=== PATIENT | female | born 1995 | race Two or more races ===

== ENCOUNTER 2020-08-18 07:00 | Inpatient (IN) | payer OTHER ==
[2020-08-18] MEDS: ELECTROLYTE-148 SOLN 1,000 ML IV SCH (07:30)
[2020-08-18] MEDS ORDERED: BUTORPHANOL TARTRATE 1 MG/ML VIAL IVPB ONE (07:51)
[2020-08-18] MEDS ORDERED: PROMETHAZINE HCL 25 MG/1 ML VIAL ONE ×2 (07:54→10:31)
[2020-08-18 08:23] LABS: INR 0.99 (0.83-1.09)
[2020-08-18 08:25] LABS: ACTIVATED PTT 25.5 SECONDS (25.2-36.5)
[2020-08-18 08:27] LABS: BLOOD UREA NITROGEN 9.3 mg/dL (7-18); CALCIUM 9.6 mg/dL (8.5-10.1)
[2020-08-18 08:31] LABS: BASO % 0.1 % (0-2.0); CREATININE 0.5 mg/dL (0.55-1.3); HEMATOCRIT 35.8 % (32.4-45.2); HEMOGLOBIN 12.3 GM/dL (10.7-15.3); LYMPH % 5.5 % (8-40); MCH 32.5 pg (25.7-33.7); MCHC 34.3 g/dl (32.0-36.0); MEAN CELL VOLUME 94.9 fl (80-96); MEAN PLT VOLUME 10.5 fl (7.5-11.1); MONO % 1.1 % (3.8-10.2); NEUT % 93.3 % (42.8-82.8); PLATELET COUNT 138 K/MM3 (134-434); RBC 3.78 M/mm3 (3.60-5.2); RDW 13.3 % (11.6-15.6); WHITE BLOOD COUNT 15.2 K/mm3 (4.0-10.0)
[2020-08-18 08:34] VITALS: BMI 23.0
[2020-08-18] MEDS ORDERED: LIDOCAINE HCL 1% PRESERVATIVE FREE - 30ML VIAL ONE (09:55)
[2020-08-18] MEDS ORDERED: OXYTOCIN 30 UNITS in 0.9% NS 30 UNIT/500 ML INFUS.BAG IVPB ONE ×2 (09:55→10:31)
[2020-08-18] MEDS ORDERED: OXYTOCIN 20 UNITS in 0.9% NS 20 UNIT/1,000 ML INFUS.BAG IV ONE ×2 (09:55→15:27)
[2020-08-18] MEDS ORDERED: BUTORPHANOL TARTRATE 1 MG/ML VIAL IVPUSH ONE (10:31)
[2020-08-18] MEDS ORDERED: BUTORPHANOL TARTRATE 1 MG/ML VIAL ONE (10:31)
[2020-08-18] MEDS ORDERED: PROMETHAZINE HCL 25 MG/1 ML VIAL IVPUSH ONE (10:31)
[2020-08-18] MEDS ORDERED: OXYTOCIN 30 UNITS in 0.9% NS 30 UNIT/500 ML INFUS.BAG IVPB SCH (10:45)
[2020-08-18] MEDS: OXYTOCIN 20 UNITS in 0.9% NS 20 UNIT/1,000 ML INFUS.BAG IV SCH ×2 (15:40→20:45)
[2020-08-18 16:10] LABS: BASO % 0.2 % (0-2.0); EOS % 0.1 % (0-4.5); HEMATOCRIT 32.6 % (32.4-45.2); HEMOGLOBIN 10.8 GM/dL (10.7-15.3); LYMPH % 5.9 % (8-40); MCH 32.2 pg (25.7-33.7); MCHC 33.3 g/dl (32.0-36.0); MEAN CELL VOLUME 96.7 fl (80-96); MEAN PLT VOLUME 11.4 fl (7.5-11.1); MONO % 5.3 % (3.8-10.2); NEUT % 88.5 % (42.8-82.8); PLATELET COUNT 170 K/MM3 (134-434); RBC 3.37 M/mm3 (3.60-5.2); RDW 13.4 % (11.6-15.6); WHITE BLOOD COUNT 20.8 K/mm3 (4.0-10.0)
[2020-08-18] MEDS ORDERED: BENZOCAINE 20% 57 GM BOTTLE TP PRN (16:19)
[2020-08-18] MEDS ORDERED: BENZOCAINE 28 GM HEMORRHOIDAL OINTMENT TP PRN (16:19)
[2020-08-18] MEDS ORDERED: WITCH HAZEL 50% (TUCKS) 40 PAD/JAR PAD TP PRN (16:19)
[2020-08-18] MEDS ORDERED: METHYLERGONOVINE MALEATE 0.2 MG/1 ML AMP IM PRN (16:19)
[2020-08-18] MEDS ORDERED: BISACODYL 10 MG SUPP.RECT RC PRN (16:19)
[2020-08-18 16:34] LABS: CORD BASE EXCESS -5.3 mmol/L (0-2); CORD BASE EXCESS -6.9 mmol/L (0-2); CORD HCO3 20.3 mmHg (20-29); CORD HCO3 23.1 mmHg (20-29); CORD PCO2 46.6 mmHg (30-78); CORD PCO2 56.7 mmHg (30-78); CORD pH 7.228 (7.14-7.44); CORD pH 7.256 (7.14-7.44)
[2020-08-18 16:43] LABS: ANISOCYTOSIS 1+; MACROCYTOSIS 0; PLATELET ESTIMATE NORMAL
[2020-08-18] MEDS: FERROUS SO4 325 MG TABLET (FP) PO SCH (17:50)
[2020-08-18] MEDS ORDERED: IBUPROFEN 600 MG TABLET (FP) PO ONE (17:54)
[2020-08-18] MEDS ORDERED: ACETAMINOPHEN 325 MG TABLET (FP) ONE ×2 (17:54)
[2020-08-18] MEDS: IBUPROFEN 600 MG TABLET (FP) PO PRN (17:55)
[2020-08-18] MEDS: ACETAMINOPHEN 325 MG TABLET (FP) PO PRN (17:57)
[2020-08-18 21:16] LABS: HEMATOCRIT 22.2 % (32.4-45.2); HEMOGLOBIN 7.4 GM/dL (10.7-15.3); LYMPH % 3.9 % (8-40); MCH 32.1 pg (25.7-33.7); MCHC 33.5 g/dl (32.0-36.0); MEAN CELL VOLUME 95.8 fl (80-96); MONO % 8.3 % (3.8-10.2); NEUT % 87.8 % (42.8-82.8); PLATELET COUNT 117 K/MM3 (134-434); RBC 2.32 M/mm3 (3.60-5.2); RDW 13.3 % (11.6-15.6); WHITE BLOOD COUNT 20.8 K/mm3 (4.0-10.0)
[2020-08-18 22:02] LABS: ANISOCYTOSIS 1+; MACROCYTOSIS 0; PLATELET ESTIMATE DECREASED
[2020-08-18] MEDS ORDERED: ceFAZolin 2 GRAM PREMIX BAG IVPB SCH (23:15)
[2020-08-19] MEDS: ACETAMINOPHEN 325 MG TABLET (FP) PO PRN ×2 (04:17→20:34)
[2020-08-19] MEDS: IBUPROFEN 600 MG TABLET (FP) PO PRN ×2 (04:17→20:35)
[2020-08-19 08:21] LABS: BASO % 0.2 % (0-2.0); EOS % 0.1 % (0-4.5); HEMATOCRIT 19.4 % (32.4-45.2); LYMPH % 11.9 % (8-40); MCH 32.2 pg (25.7-33.7); MCHC 33.4 g/dl (32.0-36.0); MEAN CELL VOLUME 96.4 fl (80-96); MEAN PLT VOLUME 9.9 fl (7.5-11.1); MONO % 9.2 % (3.8-10.2); NEUT % 78.6 % (42.8-82.8); PLATELET COUNT 104 K/MM3 (134-434); RBC 2.01 M/mm3 (3.60-5.2); RDW 13.2 % (11.6-15.6); WHITE BLOOD COUNT 11.6 K/mm3 (4.0-10.0)
[2020-08-19 08:39] LABS: HEMOGLOBIN 6.5 GM/dL (10.7-15.3)
[2020-08-19] MEDS: FERROUS SO4 325 MG TABLET (FP) PO SCH ×2 (09:03→17:48)
[2020-08-19] MEDS: PRENATAL VITAMINS W/ FOLIC ACID TABLET (FP) PO SCH (09:10)
[2020-08-19] MEDS: ELECTROLYTE-148 SOLN 1,000 ML IV SCH (21:52)
[2020-08-19] MEDS: OXYTOCIN 20 UNITS in 0.9% NS 20 UNIT/1,000 ML INFUS.BAG IV SCH (21:52)
[2020-08-19 21:59] VITALS: TEMP 98.8
[2020-08-19] MEDS ORDERED: SENNOSIDES/DOCUSATE COMBO (SENNA PLUS) TABLET (UD) PO PRN (22:00)
[2020-08-20] MEDS: PRENATAL VITAMINS W/ FOLIC ACID TABLET (FP) PO SCH (09:17)
[2020-08-20] MEDS: FERROUS SO4 325 MG TABLET (FP) PO SCH (09:17)
[2020-08-20] MEDS: ELECTROLYTE-148 SOLN 1,000 ML IV SCH (09:17)
[2020-08-20 09:37] VITALS: BP 118/68; PULSE 101
[2020-08-20 09:41] LABS: BASO % 0.2 % (0-2.0); EOS % 0.7 % (0-4.5); HEMATOCRIT 26.3 % (32.4-45.2); HEMOGLOBIN 9.1 GM/dL (10.7-15.3); LYMPH % 14.9 % (8-40); MCH 31.3 pg (25.7-33.7); MCHC 34.4 g/dl (32.0-36.0); MEAN CELL VOLUME 90.9 fl (80-96); MEAN PLT VOLUME 9.7 fl (7.5-11.1); MONO % 5.9 % (3.8-10.2); NEUT % 78.3 % (42.8-82.8); PLATELET COUNT 120 K/MM3 (134-434); RDW 16.2 % (11.6-15.6); WHITE BLOOD COUNT 13.4 K/mm3 (4.0-10.0)
[2020-08-20 11:01] LABS: BASO % 0.2 % (0-2.0); EOS % 0.5 % (0-4.5); HEMATOCRIT 25.6 % (32.4-45.2); HEMOGLOBIN 8.7 GM/dL (10.7-15.3); LYMPH % 12.3 % (8-40); MCH 30.9 pg (25.7-33.7); MCHC 33.8 g/dl (32.0-36.0); MEAN CELL VOLUME 91.4 fl (80-96); MEAN PLT VOLUME 9.6 fl (7.5-11.1); MONO % 7.4 % (3.8-10.2); NEUT % 79.6 % (42.8-82.8); PLATELET COUNT 125 K/MM3 (134-434); RDW 16.4 % (11.6-15.6); WHITE BLOOD COUNT 14.1 K/mm3 (4.0-10.0)
[2020-08-20 12:50] LABS: ANISOCYTOSIS 0; MACROCYTOSIS 0; PLATELET ESTIMATE DECREASED
[2020-08-20 13:01] LABS: ANISOCYTOSIS 0; MACROCYTOSIS 0; PLATELET ESTIMATE DECREASED
== END 2020-08-20 14:00 | disposition home or self-care (01) | DRG 560 ==
LOC: JLDR 07:00 → J3W 21:09
PROVIDERS: ADMIT Student in an Organized Health Care Education/Training Program; ATTEND Student in an Organized Health Care Education/Training Program
PROC: 10907ZC Drainage of Amniotic Fluid, Therapeutic from Products of Conception, Via Natural or Artificial Opening (ICD-10-PCS; principal; 2020-08-18)
PROC: 10E0XZZ Delivery of Products of Conception, External Approach (ICD-10-PCS; 2020-08-18)
PROC: 0W8NXZZ Division of Female Perineum, External Approach (ICD-10-PCS; 2020-08-18)
PROC: 0UQG7ZZ Repair Vagina, Via Natural or Artificial Opening (ICD-10-PCS; 2020-08-18)
PROC: 30233N1 Transfusion of Nonautologous Red Blood Cells into Peripheral Vein, Percutaneous Approach (ICD-10-PCS; 2020-08-19)
DX: O48.0 Post-term pregnancy (principal); O72.1 Other immediate postpartum hemorrhage; O90.81 Anemia of the puerperium; D64.89 Other specified anemias; O71.4 Obstetric high vaginal laceration alone; Z3A.40 40 weeks gestation of pregnancy; Z37.0 Single live birth
CPT/HCPCS: 36415; 36430; 36600; 80048; 82803; 85025; 85610; 85730; 86780; 86850; 86900; 86901; 86922; C9803; P9038; P9058; U0003; U0005

== ENCOUNTER 2023-06-22 18:36 | Emergency (ER) | payer OTHER ==
[2023-06-22 18:42] VITALS: BMI 22.6
[2023-06-22] MEDS ORDERED: ACETAMINOPHEN 1000 MG/100 ML BAG IVPB ONE (20:17)
[2023-06-22] MEDS ORDERED: SODIUM CHLORIDE 0.9% 500 ML INFUS.BAG IV ONE (20:17)
[2023-06-22] MEDS ORDERED: ACETAMINOPHEN INJECTION 100 ML IVPB ONE (20:34)
[2023-06-22 20:40] LABS: INR 1.09 (0.83-1.09); PROTHROMBIN TIME (PATIENT) 12.6 SEC (9.7-13.0)
[2023-06-22 20:42] LABS: ACTIVATED PTT 29.1 SECONDS (25.2-36.5)
[2023-06-22 20:47] LABS: BASO % 0.5 % (0-2.0); EOS % 0.7 % (0-4.5); HEMATOCRIT 36.4 % (32.4-45.2); HEMOGLOBIN 12.7 GM/dL (10.7-15.3); LYMPH % 22.7 % (8-40); MCH 31.8 pg (25.7-33.7); MEAN CELL VOLUME 90.9 fl (80-96); MEAN PLT VOLUME 9.1 fl (7.5-11.1); MONO % 6.3 % (3.8-10.2); NEUT % 69.8 % (42.8-82.8); PLATELET COUNT 216 10^3/uL (134-434); RDW 12.7 % (11.6-15.6); WHITE BLOOD COUNT 7.8 K/mm3 (4.0-10.0)
[2023-06-22 20:54] LABS: CALCIUM 9.2 mg/dL (8.5-10.1)
[2023-06-22 20:55] LABS: ALBUMIN 4.1 g/dl (3.4-5.0); BLOOD UREA NITROGEN 9.6 mg/dL (7-18)
[2023-06-22 20:58] LABS: BILIRUBIN,TOTAL 0.2 mg/dL (0.2-1); CREATININE 0.6 mg/dL (0.55-1.3); TOT PROT 7.8 g/dl (6.4-8.2)
[2023-06-23 01:09] VITALS: BP 147/95; PULSE 70; RESP 16; TEMP 98.3
== END 2023-06-23 04:00 | disposition home or self-care (01) ==
LOC: JER 18:36
PROC: 3E033NZ Introduction of Analgesics, Hypnotics, Sedatives into Peripheral Vein, Percutaneous Approach (ICD-10-PCS; principal; 2023-06-22)
DX: O20.9 Hemorrhage in early pregnancy, unspecified (principal)
CPT/HCPCS: 36415; 76817-TC; 80053; 84702; 85025; 85610; 85730; 86850; 86900; 86901; 99284-25; J0131

== ENCOUNTER 2023-06-24 17:07 | Emergency (ER) | payer SELFPAY ==
[2023-06-24 17:22] VITALS: BP 123/78; PULSE 86; RESP 18; TEMP 98.2; BMI 47.7
[2023-06-24 19:02] LABS: BASO % 0.5 % (0-2.0); EOS % 1.2 % (0-4.5); HEMOGLOBIN 11.2 GM/dL (10.7-15.3); LYMPH % 26.5 % (8-40); MCH 31.4 pg (25.7-33.7); MEAN CELL VOLUME 92.1 fl (80-96); MEAN PLT VOLUME 8.5 fl (7.5-11.1); MONO % 5.6 % (3.8-10.2); NEUT % 66.2 % (42.8-82.8); PLATELET COUNT 215 10^3/uL (134-434); RBC 3.58 M/mm3 (3.60-5.2); RDW 12.5 % (11.6-15.6)
[2023-06-24] MEDS ORDERED: IBUPROFEN 600 MG TABLET (FP) PO ONE (19:47)
[2023-06-24] MEDS: IBUPROFEN 600 MG TABLET (FP) PO ONE (19:50)
== END 2023-06-24 20:10 | disposition home or self-care (01) ==
LOC: JERFT 17:07 → JER 17:07 → JERFT 20:10
DX: N93.9 Abnormal uterine and vaginal bleeding, unspecified (principal); Z00.01 Encounter for general adult medical examination with abnormal findings
CPT/HCPCS: 36415; 84702; 85025; 86850; 86900; 86901; 99283-25